=== PATIENT | male | born 1950 | race Caucasian/White ===

== ENCOUNTER → 2024-02-27 | Outpatient (CLI) | payer MEDICARE, OTHER ==
[2024-02-27 21:42] LABS: ALT 15 U/L (10-49); AST 14 U/L (14-35); Albumin 3.9 g/dL (3.8-4.9); Albumin/Globulin Ratio 1.77 Ratio (1.60-3.17); Alkaline Phosphatase 73 U/L (41-126); Blood Urea Nitrogen 18.5 mg/dL (9.0-27.0); Calcium 8.5 mg/dL (8.7-10.3); Carbon Dioxide 28.1 mmol/L (21.6-31.8); Chloride 100 mmol/L (96-109); Globulin 2.2 g/dL (1.6-3.3); Glucose 318 mg/dL (70-110); Potassium 3.6 mmol/L (3.5-5.5); Sodium 140 mmol/L (135-145); Total Bilirubin 0.5 mg/dL (0.3-1.2); Total Protein 6.1 g/dL (6.2-8.2)
[2024-02-27 22:38] LABS: NT-Pro-B-Type Natriuretic Pept 565 pg/mL (0-450)
== END | disposition home or self-care (01) ==
LOC: LABWHC1 11:44
PROVIDERS: ATTEND Internal Medicine Interventional Cardiology
DX: R06.02 Shortness of breath (principal)
CPT/HCPCS: 36415; 80053; 83880

== ENCOUNTER 2024-04-05 06:12 | Day surgery (SDC) | payer MEDICARE, OTHER ==
[~2024-04-05 06:12] MED LIST: ALPRAZolam 0.25 MG TAB PO PRN; ALPRAZolam 0.5 MG TAB PO PRN; NITROGLYCERIN SL TABS 0.4 MG TAB SUBLINGUAL PRN
[2024-04-05] MEDS: SODIUM CHLORIDE 0.9% 1,000 ML in EMPTY BAG 1 BAG IV SCH (06:44)
[2024-04-05] MEDS ORDERED: HEPARIN SODIUM,PORCINE (1 ML) 2,500 UNIT in SODIUM CHLORIDE 0.9% 250 ML IRRIGATION PRN (07:00)
[2024-04-05] MEDS ORDERED: ASPIRIN 325 MG TAB PO ONE (07:00)
[2024-04-05] MEDS ORDERED: HEPARIN SODIUM,PORCINE 10,000 UNIT in SODIUM CHLORIDE 0.9% 1,000 ML IRRIGATION PRN (07:00)
[2024-04-05 07:02] LABS: Glucose,Whole Blood 178 mg/dL (70-110)
[2024-04-05] MEDS: IV FLUID CONTINUATION 1,000 ML IV ONE (07:07)
[2024-04-05 07:10] VITALS: RESP 16; TEMP 98
[2024-04-05] MEDS ORDERED: LIDOCAINE 1% INJ 10MG/ML (20 ML MDV) ONE (07:23)
[2024-04-05] MEDS ORDERED: HEPARIN SODIUM 1,000 UN/ML (10ML VL) ONE (07:23)
[2024-04-05] MEDS ORDERED: VERAPAMIL 2.5 MG/ML 2 ML AMP ONE (07:23)
[2024-04-05] MEDS ORDERED: fentaNYL (PF) 50 MCG/ML 2 ML AMP ONE (07:23)
[2024-04-05] MEDS: fentaNYL (PF) 50 MCG/1 ML VIAL IVP ONE (07:35)
[2024-04-05] MEDS: LIDOCAINE 1% INJ 10MG/ML (20 ML MDV) SQ ONE (07:38)
[2024-04-05] MEDS: VERAPAMIL SYRINGE (5 MG/10 ML) INTRAARTER ONE (07:42)
[2024-04-05] MEDS: MIDAZOLAM 2 MG/2 ML VIAL IVP ONE (07:48)
[2024-04-05] MEDS: HEPARIN SODIUM 1,000 UN/ML (10ML VL) IVP ONE (08:00)
[2024-04-05 08:05] LABS: O2 Sat Blood Gas 94.8 %
[2024-04-05 08:06] LABS: O2 Sat Blood Gas 71.1 %
[2024-04-05] MEDS: IOPAMIDOL-370 100ML BTL INJ ONE (08:09)
[2024-04-05] MEDS: HEPARIN SODIUM,PORCINE 10,000 UNIT in SODIUM CHLORIDE 0.9% 1,000 ML IRRIGATION ONE (08:10)
[2024-04-05] MEDS ORDERED: RX INFO: IV CONTRAST WAS GIVEN 1 EACH MISC MISCELLANE PRN (08:25)
[2024-04-05] MEDS ORDERED: SODIUM CHLORIDE 0.9% 1,000 ML IV SCH (08:30)
--- NOTE | 2024-04-05 08:33 | P.CARDCATH ---
Date of Procedure: 04/05/24 Description of Procedure: Cardiac Catheterization: The patient is a 73-year-old male with a history of diabetes who was found to have evidence of moderate cardiomyopathy, his MPI showed fixed inferior wall defect. Recommendations were made regarding cardiac catheterization, the risks and the complications were discussed with the patient who is in full understanding and agreement. Procedure Description: Patient was brought to label folder in fasting semi-sedated state after receiving Fentanyl and Benadryl achieiving moderate conscious sedated state. Using Xylocaine Anesthesia and modified Seldinger technique, a 6-Nepalese sheath was introduced in the right radial artery . The venous access in the right basilic vein was exchanged to a 6 Nepalese sheath. Right heart catheterization was performed using [place]-Jazmine catheter, multiple samples and pressures were obtained. Cardiac output by thermodilution was calculated. Subsequently, selective coronary angiography was performed using a 5-Nepalese 3.5 bend Ajit catheter. Multiple views of the coronary artery including hemiaxial views were obtained. The 6 Nepalese pigtail catheter was used to cross the aortic valve and LVEDP was calculated. A 30 degree KAMINSKI view of the left ventricle was obtained. Following that, catheter and sheath were removed. Hemostasis was obtained with deployment of vascular band . There was no immediate complication. Patient was returned to room in stable condition. Of note, the patient received a total of 4500 units of intravenous heparin as well as intra-arterial verapamil. Findings: Left main: This is a short size vessel, bifurcating into LAD and left circumflex, left main has no obstructive disease LAD: This is a large size vessel, reaching to the apex giving rise to a large diagonal branch proximally, the second diagonal branch is moderate in caliber. The LAD and its branches have no obstructive disease Left circumflex: This is a large nondominant vessel, giving rise to a large obtuse marginal branch, the left circumflex and its branches have no obstructive disease RCA: This is a large dominant vessel, bifurcating into PDA and PLV, the right coronary artery and its branches have no obstructive disease Left Ventriculogram: It was performed in the 30 degree KAMINSKI view and revealed mild global hypokinesis, estimated ejection fraction 40 to 45% 1+ mitral regurgitation was noted. Hemodynamics: Pulmonary artery saturation 70% right atrium 71% arterial 95%. Cardiac output by Gladys 6 L/min with an index of 2.9 L/min/m. Cardiac output by thermal 5.8 L/min with an index of 2.8 L/min/m. Pulmonary artery systolic pressure of 36 with a diastolic of 8 and a mean of 20 mm per mercury. Pulmonary capillary wedge pressure A wave of 14 V wave of 10 with a mean of 9 mmHg. Right ventricular systolic pressure of 35 with an end-diastolic of 4 mmHg. Right atrium A wave of 8 V wave of 8 with a mean of 5 mmHg. There was no gradient across aortic valve, LVEDP was 10-12 mmHg Conclusion: 1. Normal coronary arteries 2. Right dominance 3. No evidence of pulmonary hypertension 4. Mildly impaired low ventricular systolic function Recommendations: The patient's findings are consistent with nonischemic cardiomyopathy. We will continue medical therapy with optimizing his treatment. The findings and the recommendations were discussed with the patient and the family and they were in full understanding and agreement. Duration of sedation is 44 minutes.
[2024-04-05] MEDS ORDERED: TAMSULOSIN 0.4 MG CAP.ER.24H PO SCH (09:00)
[2024-04-05 10:16] VITALS: BP 133/61; PULSE 62
[2024-04-05] MEDS ORDERED: ATORVASTATIN 20 MG TAB PO SCH (21:00)
[2024-04-05] MEDS ORDERED: SACUBITRIL/VALSARTAN 24 MG-26 MG TABLET PO SCH (21:00)
[2024-04-06] MEDS ORDERED: PANTOPRAZOLE 40 MG TABLET PO SCH (07:30)
[2024-04-06] MEDS ORDERED: ASPIRIN 81 MG PO SCH (09:00)
== END 2024-04-05 11:35 | disposition home or self-care (01) ==
LOC: CATHCVL 06:12
PROVIDERS: ATTEND Internal Medicine Interventional Cardiology
DX: I42.8 Other cardiomyopathies
CPT/HCPCS: 82810; 85018; 93460

== ENCOUNTER → 2024-04-24 | Outpatient (CLI) | payer MEDICARE, OTHER ==
[2024-04-25 13:44] LABS: Alt. alternata IgE Class CLASS 0; Alternaria alternata IgE <0.10 kU/L (<0.10); Asperg. fumagatus IgE <0.10 kU/L (<0.10); Asperg. fumagatus IgE Class CLASS 0; Bermuda Grass IgE 2.14 kU/L (<0.10); Birch(Com.Silvr) IgE 0.89 kU/L (<0.10); Birch(Com.Silvr) IgE Class CLASS 2; Cat Epith & Dander IgE <0.10 kU/L (<0.10); Cat Epith & Dander IgE Class CLASS 0; Clad herbarum IgE <0.10 kU/L (<0.10); Clad herbarum IgE Class CLASS 0; Cockroach IgE 0.19 kU/L (<0.10); Cottonwood IgE 1.42 kU/L (<0.10); Dermato. Pteronyssinus Class CLASS 0/1; Dermato. Pteronyssinus IgE 0.11 kU/L (<0.10); Dermato. farinae IgE 1.08 kU/L (<0.10); Dermato. farinae IgE Class CLASS 2; Dog Dander IgE <0.10 kU/L (<0.10); Elm IgE 1.77 kU/L (<0.10); Maple (Box Elder) IgE 1.28 kU/L (<0.10); Maple (Box Elder) IgE Class CLASS 2; Mountain Cedar IgE 1.03 kU/L (<0.10); Mountain Cedar IgE Class CLASS 2; Mouse Urine IgE Class CLASS 0; Mouse Urine Proteins,IgE <0.10 kU/L (0.10); Nettle IgE 1.41 kU/L (<0.10); Nettle IgE Class CLASS 2; Oak IgE 1.53 kU/L (<0.10); Penicillium chrysogenum IgE <0.10 kU/L (<0.10); Penicillium chrysogenum IgE Cl CLASS 0; Rough Marshelder IgE 1.35 kU/L (<0.10); Rough Marshelder IgE Class CLASS 2; Timothy Grass IgE 1.54 kU/L (<0.10); Timothy Grass IgE Class CLASS 2; White Ash IgE Class CLASS 2
== END | disposition home or self-care (01) ==
LOC: LABWHC1 15:03
PROVIDERS: ATTEND Internal Medicine Critical Care Medicine
DX: J45.50 Severe persistent asthma, uncomplicated (principal)
CPT/HCPCS: 36415; 82785; 85008; 86003